=== PATIENT | female | born 1980 | race Caucasian/White ===

== ENCOUNTER 2017-04-24 15:51 | Emergency (ER) | payer OTHER ==
[~2017-04-24] VITALS: Ht 172.7 cm; Wt 85.7 kg
[~2017-04-24 15:51] MED LIST: ATIVAN1 M1 PO; LEXAPRO20 M1 PO; METHADONE H5 MG/5 M2 PO; REMERON30 M3 PO
[2017-04-24 16:14] LABS: ABSOLUTE BASOPHIL COUNT 0 /CUMM (0.0-0.2); ABSOLUTE EOSINOPHIL COUNT 0.1 /CUMM (0.0-0.7); ABSOLUTE GRANULOCYTE CT 12.1 /CUMM (1.4-6.5); ABSOLUTE LYMPH COUNT 1.9 /CUMM (1.2-3.4); ABSOLUTE MONOCYTE COUNT 0.5 /CUMM (0.10-0.60); BASOPHIL % 0.2 % (0.0-2.0); EOSINOPHIL % 0.3 % (0-5); GRANULOCYTE % 82.7 % (42.2-75.2); HEMATOCRIT 34.5 % (37-47); MEAN CORPUSCULAR HGB CONC 34.6 G/DL (33.0-37.0); MEAN CORPUSCULAR VOLUME 89.7 FL (81.0-99.0); MEAN PLATELET VOLUME 8.7 FL (7.4-10.4); PLATELET COUNT 285 /CUMM (130-400); RBC DISTRIBUTION WIDTH 13.2 % (11.5-14.5); RED BLOOD CELL CT 3.85 /CUMM (4.20-5.40); WHITE BLOOD CELL COUNT 14.6 /CUMM (4.8-10.8)
--- NOTE | 2017-04-24 17:19 | ED PSYCHIATRIC COMPLAINT ---
History of Present Illness General Chief Complaint: Psychiatric Related Complaint Stated Complaint: DEPRESSION Source: patient, old records Exam Limitations: no limitations Vital Signs & Intake/Output Vital Signs & Intake/Output Vital Signs Date Time Temp Pulse Resp B/P B/P Pulse O2 O2 Flow FiO2 Mean Ox Delivery Rate 04/24 1728 Room Air 04/24 1554 98.2 88 18 96 Room Air Allergies Coded Allergies: Penicillins (PER PT WAS TOLD A CHILD HAD ALLERGY 05/27/16) Reconcile Medications Escitalopram Oxalate (Lexapro) 20 MG TABLET 1 TAB PO DAILY DEPRESSION Lorazepam (Ativan) 0.5 MG TABLET 1 TAB PO BIDP PRN ANXIETY Methadone HCl 5 MG/5 ML SOLUTION 55 MG PO DAILY MENTAL HEALTH (Reported) Triage Note: 36 Y/O FEMALE C/O WORSENING DEPRESSION X FEW WEEKS; WAS ON LEXAPRO WHICH WAS WORKING BUT PT STATES SHE RAN OUT AND HAS BEEN FEELING MORE DEPRESSED. DENIES SI/HI. C/O DIFFICULTY EATING/SLEEPING AND N/V. PT DENIES ETOH/DRUG USE. CURRENTLY ON METHADONE. PT STATES SHE IS 7 MONTHS , EDC 07/26/17, . DENIES ANY OB RELATED COMPLAINTS. Triage Nurses Notes Reviewed? yes : Yes Patient currently breastfeeds: No HPI: Patient presents to the ER requesting prescriptions for her antidepressants. Patient has been off of her after compresses for the past few months and is feeling more more depressed. Patient denies any suicidal or homicidal ideations. Patient is currently IOP. Patient is 7 months . Patient states that her depression is just getting better. Her that she knows that she needs to go back on her medications. Patient states that she used to be on Lexapro 20 mg daily, trazodone 50 mg at night, Ativan as needed and Vistaril as needed. Past History Travel History Traveled to [place] past 21 day No Medical History Any Pertinent Medical History? see below for history Neurological: NONE EENT: orell CELLULITIS (hx of) Cardiovascular: NONE Respiratory: NONE Gastrointestinal: NONE Hepatic: NONE Renal: NONE Musculoskeletal: NONE Psychiatric: substance abuse Endocrine: NONE Blood Disorders: lyme Cancer(s): NONE BLOCK OPERATOR/Reproductive: NONE History of MRSA: No History of VRE: No History of CDIFF: No Pneumonia Vaccine: 01/01/15 Surgical History Surgical History: non-contributory Psychosocial History Who do you live with Other (see notes) Services at Home None What is your primary language Vietnamese Tobacco Use: Current Daily Use Daily Tobacco Use Amount/Type: => 5 Cigarettes daily ETOH Use: denies use Illicit Drug Use: denies illicit drug use Family History Hx Contributory? No Review of Systems Review of Systems Constitutional: Reports: no symptoms. EENTM: Reports: no symptoms. Respiratory: Reports: no symptoms. Cardiovascular: Reports: no symptoms. GI: Reports: no symptoms. Genitourinary: Reports: no symptoms. Musculoskeletal: Reports: no symptoms. Skin: Reports: no symptoms. Neurological/Psychological: Reports: see HPI, depressed. Hematologic/Endocrine: Reports: no symptoms. Immunologic/Allergic: Reports: no symptoms. All Other Systems: Reviewed and Negative Physical Exam Physical Exam General Appearance: well developed/nourished, mild distress Head: atraumatic Eyes: Bilateral: PERRL, EOMI. Ears, Nose, Throat: normal pharynx, normal ENT inspection, hearing grossly normal Neck: normal inspection, supple Respiratory: normal breath sounds Cardiovascular: regular rate/rhythm Gastrointestinal: soft, non-tender Extremities: normal range of motion Neurological/Psychiatric: no motor/sensory deficits, awake, alert, calm, oriented x 3 Appearance/Memory/Insight: appropriate appearance, appropriate insight Behavoir/Eye Contact/Speech: cooperative, normal speech, good eye contact Thoughts/Hallucinations: normal thought pattern, no apparent hallucination Skin: intact, normal color, warm/dry SAD PERSONS SAD PERSONS Response Value Age <19 or >45 years? yes 1 Depression/Hopelessness? yes 2 Social Support? has support 0 Total 3 SAD PERSONS Done? yes Progress Differential Diagnosis: drug intoxication, drug overdose, drug withdrawal, electrolyte abnormality, DEPRESSION Plan of Care: Orders Procedure Date/time Status URINALYSIS 04/24 1734 Complete URINE DRUG SCREEN FOR ER ONLY 04/24 1604 Complete ETHANOL 04/24 1604 Complete COMPREHENSIVE METABOLIC PANEL 04/24 1604 Complete CBC WITHOUT DIFFERENTIAL 04/24 1604 Complete Laboratory Tests 04/24/17 1753: Urine Opiates Screen < 100.00, Methadone Screen > 735 H, Barbiturate Screen 69, Ur Phencyclidine Scrn < 6.00, Amphetamines Screen < 100, U Benzodiazepines Scrn < 85, Urine Cocaine Screen > 1000 H, Urine Cannabis Screen < 5.00, Urinalysis LIGHT H, Urine Color YEL, Urine Clarity HAZY H, Urine pH 6.0, Ur Specific [place] 1.025, Urine Protein NEG, Urine Ketones NEG, Urine Nitrite NEG, Urine Bilirubin NEG, Urine Urobilinogen 2.0 H, Ur Leukocyte Esterase NEG, Ur Microscopic SEDIMENT EXAMINED, Urine RBC 1-3, Urine WBC 3-5 H, Ur Epithelial Cells MANY H, Urine Bacteria MANY H, Urine Mucus FEW, Urine Hemoglobin MOD H, Urine Glucose NEG 04/24/17 1605: Anion Gap 9, Estimated GFR > 60, BUN/Creatinine Ratio 14.0, Glucose 108 H, Calcium 8.4, Total Bilirubin 0.4, AST 15, ALT 32, Alkaline Phosphatase 60, Total Protein 6.1 L, Albumin 3.4 L, Globulin 2.7, Albumin/Globulin Ratio 1.3, CBC w Diff NO MAN DIFF REQ, RBC 3.85 L, MCV 89.7, MCH 31.0, RDW 13.2, MPV 8.7, Gran % 82.7 H, Lymphocytes % 13.3 L, Monocytes % 3.5, Eosinophils % 0.3, Basophils % 0.2, Absolute Granulocytes 12.1 H, Absolute Lymphocytes 1.9, Absolute Monocytes 0.5, Absolute Eosinophils 0.1, Absolute Basophils 0, PUBS MCHC 34.6, Serum Alcohol < 10.0 Comments: PT STATES THAT SHE WAS ON LEXAPRO THROUGH HER FIRST WITHOUT PROBLEMS. SHE VERBALLY UNDERSTANDS THE RISKS. SHE ALSO UNDERSTANDS THAT I WILL NOT BE PRESCRIBING VISTERIL OR TRAZADONE THERE IS LIMITED LITERATURE ON THE [employer] PROFILE FOR THIRD TRIMESTER. Departure Departure Disposition: HOME OR SELF CARE Condition: Stable Clinical Impression Primary Impression: Depression Referrals: PATIENT HAS NO PRIMARY CARE DR (PCP/Family) Additional Instructions: FOLLOW UP WITH YOUR PSYCHIATRIST RETURN IF YOU HAVE THOUGHTS OF HURTING YOURSELF OR ANY ONE ELSE OR FOR ANY CONCERNS Departure Forms: Customer Survey General Discharge Information Prescriptions: Current Visit Scripts Escitalopram Oxalate (Lexapro) 1 TAB PO DAILY #30 TAB Lorazepam (Ativan) 1 TAB PO BIDP PRN ANXIETY #30 TAB
[2017-04-24] MEDS ORDERED: ATIVAN0.5 M1 PO (17:51)
[2017-04-24] MEDS ORDERED: LEXAPRO20 M1 PO (17:51)
== END 2017-04-24 18:05 ==
LOC: ERH 15:51
PROVIDERS: Emergency Medicine
DX: O99.89 Other specified diseases and conditions complicating pregnancy, childbirth and the puerperium (principal); O99.333 Smoking (tobacco) complicating pregnancy, third trimester; F32.9 Major depressive disorder, single episode, unspecified; Z3A.00 Weeks of gestation of pregnancy not specified
CPT/HCPCS: 80307; 81001; G0480